=== PATIENT | male | born 1970 | race Caucasian/White ===

== ENCOUNTER 2024-05-23 07:15 | Emergency (ER) | payer MEDICAID, SELFPAY ==
[2024-05-23] VITALS (8 sets, daily range): BP systolic 109–125; BP diastolic 60–81; PULSE 59–104; RESP 16–22; TEMP 36.8–37.8; O2SAT 95–100
--- NOTE | 2024-05-23 08:27 | PD.EDRME ---
Rapid Medical Screening Exam [facility] Arrival date/time: 05/23/24 07:15 Chief Complaint: Urogenital-Male Vital signs: Vital Signs Temperature 100.0 F 05/23/24 07:19 Pulse Rate 104 H 05/23/24 07:19 Respiratory Rate 22 H 05/23/24 07:19 Blood Pressure 125/81 05/23/24 07:19 Pulse Oximetry (%) 95 05/23/24 07:19 Oxygen Delivery Method Room Air 05/23/24 07:19 [facility] Narrative: 54-year-old patient presents emergency department with complaint of generalized not feeling well. Complains of cough, fever, blood in urine for the past 4 days. Generalized wheezing auscultated in all lung chavis on physical exam. Patient is ill-appearing. He denies drug use he denies tobacco use but admits to marijuana use a week ago. He denies sick contact or recent travel.
--- NOTE | 2024-05-23 08:29 | XR_ITS ---
Examination: PA lateral chest 2 views Technique: Upright PA lateral chest 2 views Exam date and time: May 23, 2024 0913 hrs. Indications: Fever beginning 5 days ago. Findings: Significant hyperexpansion. No lobar pneumonia. Normal heart size Impression: Significant hyperexpansion No lobar pneumonia
--- NOTE | 2024-05-23 08:29 | EKG_ITS ---
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
[2024-05-23] MEDS: ALBUTEROL/IPRATROPIUM (Duoneb) RT SOL 3 ML NEBU INH (08:55)
[2024-05-23 08:59] LABS: Lactate (Lactic Acid) 1.8 mMol/L (0.4-2.0)
[2024-05-23 09:02] LABS: Basophils % (Auto) 0 % (0-2.5); Eosinophils % (Auto) 0 % (0-10); Hematocrit 50.4 % (41.0-53.0); Hemoglobin 17.3 g/dL (13.5-16.0); Immature Granulocytes % (Auto) 1 % (0-0); Immature Granulocytes Auto 0.04 Thou/mm3 (0.00-0.00); Lymphocytes # (Auto) 0.5 Thou/mm3 (1.0-4.8); Lymphocytes % (Auto) 7 % (10-50); Mean Corpuscular HGB Conc 34.3 g/dl (31.0-37.0); Mean Corpuscular Hemoglobin 30.1 pg (25.0-35.0); Mean Corpuscular Volume 88 fL (80-100); Monocytes # (Auto) 0.6 Thou/mm3 (0.0-0.8); Monocytes % (Auto) 8 % (0-12); Neutrophils # (Auto) 6.8 Thou/mm3 (1.8-7.7); Neutrophils % (Auto) 85 % (37-80); Nucleated Red Blood Cell % 0 /100 WBC (0); Platelet Count 152 Thou/mm3 (140-440); RDW Standard Deviation 41.8 fL (35.1-43.9); Red Blood Count 5.75 Miln/mm3 (4.50-5.90)
--- NOTE | 2024-05-23 09:06 | PD.EDADULT ---
ED General RME/HPI General Chief complaint: Urogenital-Male Stated complaint: URINATING BLOOD, COUGH, SORE THROAT, FEVER Time Seen by Provider: 05/23/24 08:59 Arrival date/time: 05/23/24 07:15 RME / HPI RME / HPI narrative: 54-year-old patient presents emergency department with complaint of generalized not feeling well. Complains of cough, fever, blood in urine for the past 4 days. Generalized wheezing auscultated in all lung chavis on physical exam. Patient is ill-appearing. He denies drug use he denies tobacco use but admits to marijuana use a week ago. He denies sick contact or recent travel. DR. LUIS FERNANDO ADAME ED EVALUATION: 54 year old male presents to the Emergency Department with complaints of headache, cough, fever, chills, generalized weakness, mild hematuria and mild dysuria. Onset of symptoms 5-6 days. Patient denies any vomiting, or any other symptoms at this time. Uses an inhaler at home, but ran out yesterday. PMHx: Asthma Social Hx: Methamphetamine abuse. Related Data Previous Rx's ?Medication ?Instructions ?Recorded albuterol sulfate 90 mcg/actuation 2 puff inhalation Q6H PRN 08/29/22 aerosol inhaler (Ventolin HFA) shortness of breath or wheezing #6.7 grams albuterol sulfate 90 mcg/actuation 2 inh inhalation Q4H PRN shortness 05/23/24 aerosol inhaler of breath or wheezing #8.5 grams oseltamivir 75 mg capsule (Tamiflu) 75 mg PO BID 5 days #10 caps 05/23/24 Allergies Allergy/AdvReac Type Severity Reaction Status Date / Time No Known Allergies Allergy Verified 04/05/21 09:07 Review of Systems Review of Systems Systems Reviewed: All systems reviewed, normal except as documented Narrative Review of Systems: GEN: + fever, + chills, no weight loss EYES: No discharge, no visual changes, no pain HEENT: No ear pain, no congestion, no sore throat PULM: No shortness of breath, + cough CV: No chest pain, no dyspnea on exertion, no palpitations GI: No nausea, no vomiting, no diarrhea, no pain, no constipation : + mild hematuria, + mild dysuria MUSC/SKEL: No joint pain, no back pain SKIN: No rash PSYCH: No hallucinations, no depression HEME/LYMPH: No easy bleeding or bruising tendencies NEURO: + generalized weakness, + headache Past Medical History Past Medical History RESPIRATORY: Positive Asthma Social History SMOKING STATUS: Never smoker SUBSTANCE USE: methamphetamine ALCOHOL: Never ED Exam Narrative Physical exam: GENERAL APPEARANCE: Well hydrated, well nourished, in no acute distress. Frequent cough. VITALS: All vitals were reviewed and the pulse ox is 100% on room air which is normal according to my interpretation. HEENT: Normocephalic, atramatic, EOMI, EACs are patent. There is no bulge or retraction. Throat without erythema or exudate. Moist oromucosa. No jaundice NECK: Supple, no JVD or bruits. CARDIOVASCULAR: Heart regular without S3-S4 or murmur. No rubs or gallops. LUNGS/CHEST: Some wheezing. No rhonchi. ABDOMEN: Soft, nontender, with normal bowel sounds. No pulsatile masses. No rebound, rigidity, or guarding. No incarcerated hernia. Normal inspection and palpation. EXTREMITIES: No edema, clubbing, or cyanosis. Intact CSM. Normal inspection and palpation. SKIN: Warm and dry without rashes. Normal inspection. MUSCULOSKELETAL: No gross deformity, full ROM all extremities. Normal inspection. NEURO: Alert and oriented x3. Cranial nerves II through XII grossly intact. There are no other motor or sensory deficits noted. PSYCHIATRIC: Normal mood and affect. No psychosis. Course Quality Measures none Orders Category Date Time Status Bedside COVID-19 Antigen Test NOW Care 05/23/24 08:29 Active Bedside Influenza A&B Antigen Test NOW Care 05/23/24 08:31 Completed EKG (ED ONLY) *Do not use* NOW Care 05/23/24 08:30 Completed EKG (ED Only) Stat Exams 05/23/24 08:29 Draft XR chest 2V Stat Exams 05/23/24 08:29 Completed BNP [B-Type Natriuretic Peptide] Stat Lab 05/23/24 08:50 Completed Blood Culture (Lab) Stat Lab 05/23/24 08:40 Received CBC [CBC] Stat Lab 05/23/24 08:50 Completed CMP [Comprehensive Metabolic Panel] Stat Lab 05/23/24 08:50 Completed Lactic Acid [Lactate (Lactic Acid)] Stat Lab 05/23/24 08:50 Completed Urinalysis, C/S if Indicated Stat Lab 05/23/24 12:57 Completed Urine Culture Stat Lab 05/23/24 12:57 Received Albuterol/Ipratr Rt Elina [Duoneb Rt Elina] Med 05/23/24 08:29 Discontinued 3 ml INH X1 ONE Ibuprofen Tab [Motrin Tab] Med 05/23/24 09:13 Discontinued 600 mg PO X1 ONE Oseltamivir [Tamiflu] Med 05/23/24 09:13 Discontinued 75 mg PO X1 ONE Sodium Chloride 0.9% 1000 ml [Ns] 1,000 ml Med 05/23/24 08:30 Discontinued IV 999 mls/hr cefTRIAXone [Rocephin] Med 05/23/24 08:29 Discontinued 1,000 mg IM X1 ONE cefTRIAXone [Rocephin] 1,000 mg Med 05/23/24 09:15 Discontinued Sodium Chloride 0.9% (P) [Ns 0.9% (P)] 50 ml IV X1 Vital Signs Vital signs: Vital Signs Temperature 100.0 F 05/23/24 07:19 Pulse Rate 104 H 05/23/24 07:19 Respiratory Rate 22 H 05/23/24 07:19 Blood Pressure 125/81 05/23/24 07:19 Pulse Oximetry (%) 95 05/23/24 07:19 Oxygen Delivery Method Room Air 05/23/24 07:19 [facility] Patient data External records reviewed:: [facility] previous records (Reviewed last ED visit dated 08/29/22, discharged with the following: Acute bronchospasm.) Clinical information provided by:: patient Social determinants that could affect healthcare access:: substance use (methamphetamine) Patient has the following chronic illnesses:: Asthma How is presenting disease/condition affected by chronic disease/condition?: exacerbated by Evaluation data The following diagnostics were reviewed and interpreted by me:: lab results, radiology exam(s) and EKG tracing(s) Lab and/or radiology exams considered but not ordered:: none Interpretation Summary: Procedure(s): XR chest 2V Accession Number(s): [id number] cc: Sebastian Cardozo MD; Nasim Jarvis PA-C~ Examination: PA lateral chest 2 views Technique: Upright PA lateral chest 2 views Exam date and time: May 23, 2024 0913 hrs. Indications: Fever beginning 5 days ago. Findings: Significant hyperexpansion. No lobar pneumonia. Normal heart size Impression: Significant hyperexpansion No lobar pneumonia Dictated By: Sebastian Cardozo MD Medications Medications considered but not ordered:: none Medication administrations:: Medication Administration History Discontinued Medications Albuterol/Ipratropium (Albuterol/Ipratropium (Duoneb) Rt Elina 3 Ml Nebu) 3 ml INH X1 ONE Stop: 05/23/24 08:30 Last Admin: 05/23/24 08:55 Dose: 3 ml Documented By: EV Ceftriaxone Sodium (Ceftriaxone Sod Inj 1,000 Mg Vial) 1,000 mg IM X1 ONE Stop: 05/23/24 08:30 Last Admin: 05/23/24 09:17 Dose: Not Given Documented By: ED Non-Admin Reason: Duplicate Medication on eMAR Sodium Chloride (Ns) 1,000 mls @ 999 mls/hr IV .Q1H1M ONE Stop: 05/23/24 09:30 Last Infusion: 05/23/24 10:40 Dose: Infused Documented By: Admin: 05/23/24 09:38 Dose: 999 mls/hr Documented By: ED Ceftriaxone Sodium 1,000 mg/ (Sodium Chloride) 50 mls @ 100 mls/hr IV X1 ONE Stop: 05/23/24 09:44 Last Infusion: 05/23/24 10:11 Dose: Infused Documented By: Admin: 05/23/24 09:41 Dose: 100 mls/hr Documented By: ED Ibuprofen (Ibuprofen Tab 600 Mg Tablet) 600 mg PO X1 ONE Stop: 05/23/24 09:14 Last Admin: 05/23/24 09:26 Dose: 600 mg Documented By: ED Oseltamivir Phosphate (Oseltamivir 75 Mg Capsule) 75 mg PO X1 ONE Stop: 05/23/24 09:14 Last Admin: 05/23/24 09:26 Dose: 75 mg Documented By: ED see above Consultations Consultation(s) initiated? (list below): No Diagnosis Differential Diagnosis ED Complaint MDM: Pneumonia. Influenza. Dehydration. Most likely diagnosis given after review of the tests above:: Influenza A. Microscopic hematuria Admission Indicated Admission indicated?: not indicated Explain why admission is indicated or not indicated:: Patient has no emergent abnormalities on his studies and can be managed on an outpatient basis. Admission Request Was there a request for admission?: No Disposition Plan Disposition Plan: Discharge Discharge Attestation Discharge Attestation: The patient and all family members were given an opportunity to ask questions and understood the discharge instructions. Discharge instructions specifically effects, indications for sooner follow up or return to the emergency department, and the expected course of current diagnosis. Patient condition: Stable Medical Decision Making MDM Narrative MDM Narrative: Aung, Maribel Aranda, am scribing for and in the presence of Dr. Cheema. CBC unremarkable. CMP negative. Total bilirubin is 1.4 but no change from prior result. COVID-negative. Influenza A is positive. Lactic acid negative. UA is yellow with microscopic blood. Chest x-ray interpreted by me: Clear lungs. Heart normal. Mediastinum normal. Normal bones. Twelve-lead EKG is interpreted by me: Normal sinus rhythm. Heart rate of 110. Normal axis. No ST elevation or depression. No PVC. No STEMI. Regular rate and rhythm. In the emergency department the patient received IV fluid, IV anti, Tamiflu. Patient continued to do well. He did not have any blood in the urine in the ER. And his O2 saturation has been normal on room air. The patient does not appear to be toxic. Differential Diagnosis Differential Diagnosis: Pneumonia. Influenza. Dehydration. Lab Data 05/23/24 08:50 05/23/24 08:50 Labs: Lab Results 05/23/24 05/23/24 Range/Units 08:50 12:57 WBC 8.0 (3.8-10.6) Thou/mm3 RBC 5.75 (4.50-5.90) Miln/mm3 Hgb 17.3 H (13.5-16.0) g/dL Hct 50.4 (41.0-53.0) % MCV 88 (80-100) fL MCH 30.1 (25.0-35.0) pg MCHC 34.3 (31.0-37.0) g/dl RDW Std Deviation 41.8 (35.1-43.9) fL Plt Count 152 (140-440) Thou/mm3 Neut % (Auto) 85 H (37-80) % Lymph % (Auto) 7 L (10-50) % [place] % (Auto) 8 (0-12) % Eos % (Auto) 0 (0-10) % Baso % (Auto) 0 (0-2.5) % Neut # (Auto) 6.8 (1.8-7.7) Thou/mm3 Lymph # (Auto) 0.5 L (1.0-4.8) Thou/mm3 [place] # (Auto) 0.6 (0.0-0.8) Thou/mm3 Eos # (Auto) 0.0 (0.0-0.5) Thou/mm3 Baso # (Auto) 0.0 (0.0-0.2) Thou/mm3 Immature Gran # (Auto) 0.04 H (0.00-0.00) Thou/mm3 Absolute Nucleated RBC 0.00 (0.00-0.00) Thou/mm3 Immature Gran % 1 H (0-0) % Nucleated RBC % 0 (0) /100 WBC Sodium 131 L (136-145) mMol/L Potassium 4.4 (3.4-5.1) mMol/L Chloride 93 L (98-107) mMol/L Carbon Dioxide 28.9 (20.0-31.0) mMol/L Anion Gap 9 (7-16) BUN 21 (9-23) mg/dL Creatinine 1.4 H (0.6-1.3) mg/dL Estim Creat Clear Calc 53.5 L (>60) mL/min eGFR 59 L (60 - ) See Note BUN/Creatinine Ratio 15 (12-20) Ratio Glucose 117 H (74-106) mg/dL Calculated Osmolality 266 L (275-295) Lactic Acid 1.8 (0.4-2.0) mMol/L Calcium 9.7 (8.3-10.6) mg/dL Corrected Calcium 9.7 (8.5-10.1) mg/dL Total Bilirubin 1.4 H (0.3-1.2) mg/dL AST 49 H (0-34) U/L ALT 31 (10-49) U/L Alkaline Phosphatase 67 (46-116) U/L B-Natriuretic Peptide 21 (0-100) pg/mL Total Protein 7.9 (5.7-8.2) gm/dL Albumin 5.3 H (3.5-5.0) gm/dL Globulin 2.6 (2.3-3.5) gm/dL Albumin/Globulin Ratio 2.0 (1.2-2.2) Ur Collection Type Voided Urine Color Yellow (Lt Yel-Yel) Urine Clarity Turbid A (Clear/Hazy) Urine pH 5.5 (5.0-7.0) Ur Specific [place] 1.030 (1.001-1.035) Urine Protein 1+ A (Neg - Trace) Urine Glucose (UA) Negative (Negative) Urine Ketones Negative (Negative) Urine Blood 3+ A (Negative) Urine Nitrite Negative (Negative) Urine Bilirubin Negative (Negative) Urine Urobilinogen (Auto) Negative (0.0-1.0) mg/dL Ur Leukocyte Esterase Positive (Negative) Urine RBC 843 H (0-3) /hpf Urine WBC 69 H (0-5) /hpf Ur Squamous Epith Cells < 1 (0-5) /hpf Urine Bacteria None (None) Hyaline Casts 2 H (0-1) /hpf Urine Sperm Present A (None) Ur Culture Indicated? Yes Discharge Plan Plan Patient Disposition: HOME (Self Care) Disposition Comment: Stable for [place] home Prescriptions/Referrals Prescriptions/Med Rec: New albuterol sulfate 90 mcg/actuation HFA aerosol inhaler 2 inh inhalation Q4H PRN (Reason: shortness of breath or wheezing) Qty: 8.5 0RF oseltamivir [Tamiflu] 75 mg capsule 75 mg PO BID 5 Days Qty: 10 0RF No Action albuterol sulfate [Ventolin HFA] 90 mcg/actuation HFA aerosol inhaler 2 puff inhalation Q6H PRN (Reason: shortness of breath or wheezing) Qty: 6.7 0RF Referrals: Fabiola Coley FNP [Primary Care Provider] - In 1 week Problem List Clinical Impression: Influenza Patient/Caregiver Discharge Instructions Education Materials: ED Influenza (Adult) Additional Instructions: Medication as prescribed. Rest. Drink plenty of liquid. Follow-up with your medical doctor in 3 days. Return the emergency department if condition worsens or if new symptoms develop. Caution: Flu can be contagious Print Language: Serbian Stand Alone Forms: Emmanuelle Award Info., Patient Portal Info Letter
[2024-05-23] MEDS: IBUPROFEN TAB 600 MG TABLET PO (09:26)
[2024-05-23] MEDS: OSELTAMIVIR 75 MG CAPSULE PO (09:26)
--- NOTE | 2024-05-23 09:28 | PC.NURSE ---
Pt. here from home to room 6, pt. states he hasn't eaten in 5 or 6 days, pt. states he has a BAH 10/10, pt. states he has diarrhea and it just comes out he can't make it to the RR. Pt. states he has painful urination and the last time he urinated a small amount of blood came out. 2 warm blankets given.
[2024-05-23 09:29] LABS: B-Type Natriuretic Peptide 21 pg/mL (0-100)
[2024-05-23] MEDS: SODIUM CHLORIDE 0.9% 1000 ML 1,000 ML 999 ML IV (09:38)
[2024-05-23] MEDS: cefTRIAXone 1,000 MG in SODIUM CHLORIDE 0.9% (P) 50 ML 100 MG IV (09:41)
[2024-05-23 09:50] LABS: Alanine Aminotransferase 31 U/L (10-49); Albumin, Serum 5.3 gm/dL (3.5-5.0); Alkaline Phosphatase 67 U/L (46-116); Anion Gap 9 (7-16); Aspartate Amino Transferase 49 U/L (0-34); BUN/Creatinine Ratio 15 Ratio (12-20); Bilirubin,Total 1.4 mg/dL (0.3-1.2); Blood Urea Nitrogen 21 mg/dL (9-23); Calcium 9.7 mg/dL (8.3-10.6); Calcium (Corrected) 9.7 mg/dL (8.5-10.1); Carbon Dioxide 28.9 mMol/L (20.0-31.0); Chloride 93 mMol/L (98-107); Creatinine (Component) 1.4 mg/dL (0.6-1.3); Estimated Creatinine Clearance 53.5 mL/min (>60); Globulin 2.6 gm/dL (2.3-3.5); Glucose 117 mg/dL (74-106); Osmolality,Calculated 266 (275-295); Potassium 4.4 mMol/L (3.4-5.1); Sodium 131 mMol/L (136-145); Total Protein 7.9 gm/dL (5.7-8.2); eGFR 59 See Note
[2024-05-23 13:03] LABS: Collection Type, Urine Voided
[2024-05-23 13:32] LABS: Bilirubin,Urine Negative (Negative); Blood,Urine 3+ (Negative); Clarity,Urine Turbid (Clear/Hazy); Color,Urine Yellow (Lt Yel-Yel); Glucose, Urine Negative (Negative); Hyaline Casts,Urine 2 /hpf (0-1); Ketones,Urine Negative (Negative); Leukocyte Esterase,Urine Positive (Negative); Nitrite,Urine Negative (Negative); PH,Urine 5.5 (5.0-7.0); Protein,Urine 1+ (Neg - Trace); RBC,Urine 843 /hpf (0-3); Squamous Epithelial Cell,Urine < 1 /hpf (0-5); Urobilinogen,Urine Negative mg/dL (0.0-1.0); WBC,Urine 69 /hpf (0-5)
[2024-05-23 13:33] LABS: Culture Indicated,Urine Yes; Sperm,Urine Present
== END 2024-05-23 20:48 | disposition home or self-care (01) ==
PROVIDERS: Physician Assistant; Emergency Provider Emergency Medicine; PCP Nurse Practitioner Family
DX: J11.1 Influenza due to unidentified influenza virus with other respiratory manifestations (principal)
CPT/HCPCS: 36415; 71046; 80053; 81001; 83605; 83880; 85025; 87040; 87086; 87400; 87811; 93005; 94640; 96365; 99284; A9270; J0696; J7030; J7050

== ENCOUNTER 2024-12-13 21:42 | Emergency (ER) | payer MEDICAID, SELFPAY ==
--- NOTE | 2024-12-13 22:02 | XR_ITS ---
EXAMINATION: Ankle, right 3 views . Technique: Ankle AP, oblique, lateral 3 views Date and time of exam: December 13, 2024 1004 hours INDICATIONS: Patient fell yesterday within the ankle, ankle pain. FINDINGS: Lateral malleolar soft tissue swelling. No fracture or dislocation IMPRESSION: No fracture or dislocation
[2024-12-13 22:03] VITALS: BP 141/87; PULSE 88; RESP 18; TEMP 37; O2SAT 96
--- NOTE | 2024-12-13 23:52 | PD.EDANKLE ---
Lower Extremity Injury RME/HPI General Chief Complaint: Ankle/Foot Injury Stated Complaint: RIGHT ANKLE INJURY Time Seen by Provider: 12/13/24 23:43 Arrival date/time: 12/13/24 21:42 RME / HPI RME / HPI Narrative: 54-year-old male presents to the ED with a complaint of an inversion type injury to his right ankle. He states he was walking and slipped on some water outside of his apartment. He has painful weightbearing and is currently using his uncle's cane. Related Data Previous Rx's ?Medication ?Instructions ?Recorded albuterol sulfate 90 mcg/actuation 2 puff inhalation Q6H PRN 08/29/22 aerosol inhaler (Ventolin HFA) shortness of breath or wheezing #6.7 grams albuterol sulfate 90 mcg/actuation 2 inh inhalation Q4H PRN shortness 05/23/24 aerosol inhaler of breath or wheezing #8.5 grams albuterol sulfate 2.5 mg/3 mL 2.5 mg (3 mL) inhalation Q4H PRN 05/24/24 (0.083 %) solution for nebulization shortness of breath or wheezing #90 mL ibuprofen 600 mg tablet 600 mg PO Q8H PRN pain #30 tabs 12/13/24 Allergies Allergy/AdvReac Type Severity Reaction Status Date / Time No Known Allergies Allergy Verified 12/13/24 21:46 Review of Systems Review of Systems Systems Reviewed: All systems reviewed, normal except as documented Past Medical History Past Medical History CARDIAC: Negative Cardiac Disorders or Congestive Heart Failure RESPIRATORY: Positive Asthma; Negative Chronic Obstructive Pulmonary Disease (COPD) GENITOURINARY: Negative Renal Disease ENDOCRINE: Negative Diabetes Mellitus Type 1 or Diabetes Mellitus Type 2 HEMATOLOGIC: Negative Sickle Cell Disease Social History SMOKING STATUS: Former smoker SUBSTANCE USE: methamphetamine ED Exam Narrative Physical exam: A&O, afebrile and non-toxic appearing 54-year-old male, no acute distress. Lung are clear, RRR, Abdomen is non-distended. No tenderness noted to the tibia or medial malleolus. Positive tenderness to the distal fibula. Positive pain with inversion/eversion, as well as plantarflexion and dorsiflexion. CMS intact distally. Moves all other extremities well. Course Course Course Narrative: XR ankle right reveals: Avulsion fracture of the distal fibula. Disagree with radiologist interpretation. Patient was placed in a stirrup splint and fitted with a pair crutches. He was also given ibuprofen 600 mg p.o. prior to discharge. Quality Measures none Orders Category Date Time Status XR ankle comp RT min 3V Stat Exams 12/13/24 22:02 Completed Vital Signs Vital signs: Vital Signs Temperature 98.6 F 12/13/24 22:03 Pulse Rate 88 12/13/24 22:03 Respiratory Rate 18 12/13/24 22:03 Blood Pressure 141/87 H 12/13/24 22:03 Pulse Oximetry (%) 96 12/13/24 22:03 Oxygen Delivery Method Room Air 12/13/24 22:03 Extremity Injury, Lower MDM Narrative MDM Narrative:: Symptoms, exam and diagnostic studies are consistent with: Right distal fibula avulsion fracture. Patient was discharged home in stable condition. Patient/family advised to follow-up with their PCP in 24-48 hours. Encouraged to return to the ED for any new or worsening symptoms. Patient data External records reviewed:: None Clinical information provided by:: patient Social determinants that could affect healthcare access:: none Patient has the following chronic illnesses:: N/A How is presenting disease/condition affected by chronic disease/condition?: no chronic disease Evaluation data The following diagnostics were reviewed and interpreted by me:: radiology exam(s) Lab and/or radiology exams considered but not ordered:: N/A Interpretation Summary: Right distal fibula avulsion fracture. Medications / Prescriptions Medications or Prescriptions considered but not ordered:: N/A Medication administrations:: Motrin 600 mg p.o. Consultations Consultation(s) initiated? (list below): No Diagnosis Extremity Injury, Lower Differential Diagnosis: ankle sprain and strain and ankle fracture Most likely diagnosis given after review of the tests above:: Right distal fibula avulsion fracture. Admission Indicated Admission indicated?: not indicated Explain why admission is indicated or not indicated:: Patient is stable for discharge Admission Request Was there a request for admission?: No Admission Attestation Admission request attestation: N/A Disposition Plan Disposition Plan: Discharge Discharge Attestation Discharge Attestation: The patient and all family members were given an opportunity to ask questions and understood the discharge instructions. Discharge instructions specifically effects, indications for sooner follow up or return to the emergency department, and the expected course of current diagnosis. Patient condition: Stable Discharge Plan Plan Patient Disposition: HOME (Self Care) Discharge Disposition comment: Stable and improved Prescriptions/Referrals Prescriptions/Med Rec: New ibuprofen 600 mg tablet 600 mg PO Q8H PRN (Reason: pain) Qty: 30 0RF No Action albuterol sulfate 90 mcg/actuation HFA aerosol inhaler 2 inh inhalation Q4H PRN (Reason: shortness of breath or wheezing) Qty: 8.5 0RF albuterol sulfate 2.5 mg /3 mL (0.083 %) solution for nebulization 2.5 mg inhalation Q4H PRN (Reason: shortness of breath or wheezing) Qty: 90 0RF albuterol sulfate [Ventolin HFA] 90 mcg/actuation HFA aerosol inhaler 2 puff inhalation Q6H PRN (Reason: shortness of breath or wheezing) Qty: 6.7 0RF Referrals: No Primary/Family,Physician [Primary Care Provider] - In 1 week Problem List Clinical Impression: Ankle fracture Patient/Caregiver Discharge Instructions Education Materials: ED Fracture, Lower Extremity Additional Instructions: Keep the splint in place until you are told to remove it by your primary care physician or an environmental education specialist. Ice and elevate the right ankle. Use the crutches at all times. Do not put weight on the splint. Follow-up with your primary care physician in 24 to 48 hours. Return to the ED for any new or worsening symptoms. Print Language: Mosotho Stand Alone Forms: Emmanuelle Award Info., Patient Portal Info Letter PA/[employer] MA[employer] Supervising Physician PA/[employer] MANAGER Supervising Physician: Dr. Ponce
[2024-12-13] MEDS: IBUPROFEN TAB 600 MG TABLET PO (23:59)
== END 2024-12-14 00:04 | disposition home or self-care (01) ==
PROVIDERS: Emergency Provider Emergency Medicine
DX: S82.831A Other fracture of upper and lower end of right fibula, initial encounter for closed fracture (principal); X50.1XXA Overexertion from prolonged static or awkward postures, initial encounter; W01.0XXA Fall on same level from slipping, tripping and stumbling without subsequent striking against object, initial encounter; Y93.01 Activity, walking, marching and hiking
CPT/HCPCS: 29515; 73610; 99283; A9270